=== PATIENT | male | born 1960 | race Caucasian/White ===

== ENCOUNTER 2020-08-07 06:16 | Emergency (ER) | payer MEDICARE ==
[2020-08-07 08:23] LABS: ABSOLUTE LYMPHOCYTES (AUTO) 0.9 10^3/uL (0.5-4.7); ABSOLUTE MONOCYTES (AUTO) 0.8 10^3/uL (0.1-1.4); ABSOLUTE NEUT (AUTO) 3.7 10^3/uL (1.7-8.2); BASOPHILS % (AUTO) 0.8 % (0-2); EOSINOPHILS % (AUTO) 0.9 % (0-6); HEMATOCRIT 39.5 % (37.9-51.0); HEMOGLOBIN 13.7 g/dL (13.5-17.0); LYMPHOCYTES % (AUTO) 16.7 % (13-45); MEAN CORPUSCULAR HEMOGLOBIN 29.6 pg (27.0-33.4); MEAN CORPUSCULAR HGB CONC 34.6 g/dL (32.0-36.0); MEAN CORPUSCULAR VOLUME 86 fl (80-97); MONOCYTES % (AUTO) 14.6 % (3-13); PLATELET COUNT 180 10^3/uL (150-450); RED BLOOD COUNT 4.62 10^6/uL (4.35-5.55); RED CELL DISTRIBUTION WIDTH 13.7 % (11.5-14.0); TOTAL CELLS COUNTED % (AUTO) 100 %; WHITE BLOOD COUNT 5.5 10^3/uL (4.0-10.5)
--- NOTE | 2020-08-07 08:25 | RADIOLOGY REPORT (SQ) ---
EXAM DESCRIPTION: CHEST SINGLE VIEW IMAGES COMPLETED DATE/TIME: 08/07/2020 7:35 am REASON FOR STUDY: fever COMPARISON: None. EXAM PARAMETERS: NUMBER OF VIEWS: One view. TECHNIQUE: Single frontal radiographic view of the chest acquired. RADIATION DOSE: NA LIMITATIONS: None. FINDINGS: LUNGS AND PLEURA: Minimal basilar opacities. MEDIASTINUM AND HILAR STRUCTURES: No masses. Contour normal. HEART AND VASCULAR STRUCTURES: Heart normal in size. Normal vasculature. BONES: No acute findings. HARDWARE: None in the chest. OTHER: No other significant finding. IMPRESSION: Minimal basilar opacities. TECHNICAL DOCUMENTATION: JOB ID: [id number] [email or web address]- All Rights Reserved Reading location - IP/workstation name: [email or web address]
[2020-08-07 08:41] LABS: ALKALINE PHOSPHATASE 57 U/L (38-126); ANION GAP 6 (5-19); ASPARTATE AMINO TRANSFERASE 41 U/L (17-59); BILIRUBIN,DIRECT 0.1 mg/dL (0.0-0.4); BILIRUBIN,TOTAL 0.4 mg/dL (0.2-1.3); BLOOD UREA NITROGEN 19 mg/dL (7-20); CARBON DIOXIDE 28 mmol/L (22-30); CHLORIDE 98 mmol/L (98-107); GLUCOSE 118 mg/dL (75-110); TOTAL PROTEIN 6.4 g/dL (6.3-8.2)
[2020-08-07 09:17] LABS: APPEARANCE,URINE SLIGHTLY-CLOUDY; BILIRUBIN,URINE NEGATIVE (NEGATIVE); COLOR,URINE YELLOW; GLUCOSE, URINE NEGATIVE (NEGATIVE); KETONES,URINE NEGATIVE (NEGATIVE); PROTEIN,URINE NEGATIVE (NEGATIVE); URINE SPECIFIC GRAVITY 1.021
[2020-08-07 09:44] LABS: A TYPE INFLUENZA AG NEGATIVE (NEGATIVE); B INFLUENZA AG NEGATIVE (NEGATIVE)
[2020-08-07] MEDS ORDERED: DEXAMETHASONE SOD PHOS INJ 10 MG/1 ML VIAL IV ONE (10:39)
--- NOTE | 2020-08-07 10:46 | ER Document Report ---
ED General - General Chief Complaint: Flu Symptoms Stated Complaint: FEVER,BODY ACHES,LOSS OF COORDINATION Time Seen by Provider: 08/07/20 07:42 Primary Care Provider: KEHINDE KAY MD [Primary Care Provider] - Follow up as needed - HPI Notes: Chief complaint: Flulike illness History of present illness: 60-year-old male history of hypertension, CAD with previous stent placement and osteoarthritis status post bilateral knee replacements presents now with 2 to 3-day history of mild flulike illness. He notes that he becomes dyspneic on exertion. He has minimal cough. No chest pain. He has had some alteration of his sense of taste. He denies fever or chills. He has had some mild impairment of memory and concentration. Suspect that he may have Covid although has not been tested for this and he has no definite known exposure to a Covid positive individual. Patient smokes three quarters of a pack of cigarettes per day. - Related Data Allergies/Adverse Reactions: Penicillins Allergy (Verified 08/07/20 06:23) Past Medical History - General Information source: Patient - Social History Smoking Status: Current Every Day Smoker Frequency of alcohol use: Social Drug Abuse: None Lives with: Spouse/Significant other Family History: Reviewed & Not Pertinent - Past Medical History Cardiac Medical History: Reports: Hx Coronary Artery Disease Pulmonary Medical History: Reports: None Endocrine Medical History: Denies: Hx Diabetes Mellitus Type 1, Hx Diabetes Mellitus Type 2 Malignancy Medical History: Reports None GI Medical History: Reports: None Musculoskeletal Medical History: Reports Hx Arthritis Past Surgical History: Reports: Hx Orthopedic Surgery Review of Systems - Review of Systems Notes: Constitutional: Negative for fever. HENT: Negative for sore throat. Eyes: Negative for visual changes. Cardiovascular: Negative for chest pain. Respiratory: As per HPI. Gastrointestinal: Negative for abdominal pain, vomiting or diarrhea. Genitourinary: Negative for dysuria. Musculoskeletal: As per HPI. Skin: Negative for rash. Neurological: As per HPI. 10 point ROS negative except as marked above and in HPI. Physical Exam - Vital signs Vitals: Temp Pulse Resp BP Pulse Ox 98.0 F 71 18 129/64 H 96 08/07/20 06:23 08/07/20 06:23 08/07/20 06:23 08/07/20 06:23 08/07/20 06:23 - Notes Notes: GENERAL: No patient of approximately stated age appearing in no acute distress. SKIN: Good turgor no rashes. HEAD: Normocephalic atraumatic. EYES: PERRLA. EOMI. Conjunctivae and sclerae clear. EARS: CANALS AND TMS CLEAR. NOSE: CLEAR. MOUTH: Moist mucosa. Good dentition. No stridor or edema. No drooling. NECK: Supple. No masses or thyromegaly. No adenopathy. Carotids 2+ without bruits. No JVD. BACK: Symmetrical without tenderness. CHEST: Few scattered rhonchi bilaterally which clear with cough. Respirations unlabored. Breath sounds clear and symmetrical. HEART: Regular rhythm. No murmur gallop or rub. ABDOMEN: Soft nontender without masses, organomegaly or rebound. Bowel sounds normally active. No bruits. GENITALIA: Deferred. EXTREMITIES: No edema. No calf tenderness. Cap refill less than 1.5 seconds. Dorsalis pedis and posterior tibial pulses 3+ and symmetrical. NEUROLOGICAL: GCS 15. Alert and oriented x3. Normal gait. Fluent speech. Cranial nerves II through XII intact. Sensorimotor and cerebellar normal. Normal tone. PSYCHIATRIC: Appropriate affect. Course - Re-evaluation Re-evalutation: 08/07/20 10:44 Patient is hemodynamically stable and is oxygenating normally on room air. Chest x-ray shows minimal bibasilar interstitial infiltrates suspicious for Covid pneumonia. We have submitted a nasal swab with 72-hour turnaround time. His influenza swab here is negative. I have reassured the patient and I am going to treat him empirically with dexamethasone and azithromycin. I think he stable for outpatient management with isolation at home until results of his testing are known. He understands to return here immediately for new or worsening symptoms. Findings, clinical impression and plan of treatment have been discussed with patient/family. Understanding of current findings and recommendations has been acknowledged by them and there is agreement regarding disposition and follow-up. - Vital Signs Vital signs: Temp Pulse Resp BP Pulse Ox 98.0 F 71 18 129/64 H 96 08/07/20 06:23 08/07/20 06:23 08/07/20 06:23 08/07/20 06:23 08/07/20 06:23 - Laboratory Result Diagrams: 08/07/20 07:39 08/07/20 07:39 Laboratory results interpreted by me: 11/28/20 11/28/20 11/28/20 07:39 07:39 08:52 [place] % (Auto) 14.6 H Sodium 132.4 L Glucose 118 H Urine Urobilinogen 2.0 H Urine Ascorbic Acid 40 H - Diagnostic Test Radiology reviewed: Image reviewed, Reports reviewed Radiology results interpreted by me: 08/07/20 10:44 Chest X-Ray 08/07/20 07:25 IMPRESSION: Minimal basilar opacities. Discharge - Discharge Clinical Impression: Interstitial pneumonitis, Suspected COVID-19 infection Condition: Stable Disposition: HOME, SELF-CARE Additional Instructions: Increase oral fluids. Return here as needed for new or worsening symptoms. Take prescribed medications as directed. It is recommended that she should stop smoking. Remain on isolation at home until you receive results of your pending Covid testing within the next 72 hours. You may also follow-up with your primary care physician. Prescriptions: Azithromycin 250 mg PO ASDIR PRN #6 tablet PRN Reason: Prednisone [Deltasone 20 mg Tablet] 2 tab PO DAILY 5 Days tablet Forms: Smoking Cessation Education Referrals: KEHINDE KAY MD [Primary Care Provider] - Follow up as needed
[2020-08-07] MEDS ORDERED: ACETAMINOPHEN 325 MG TABLET PO ONE (11:23)
[2020-08-07] MEDS ORDERED: DEXAMETHASONE SOD PHOS INJ 10 MG/1 ML VIAL IM ONE (11:25)
[2020-08-07 11:42] VITALS: BP 116/79
== END 2020-08-07 11:42 | disposition home or self-care (01) ==
LOC: ER 06:16
DX: U07.1 COVID-19 (principal); R50.9 Fever, unspecified; M79.10 Myalgia, unspecified site; F17.210 Nicotine dependence, cigarettes, uncomplicated; I10 Essential (primary) hypertension; I25.10 Atherosclerotic heart disease of native coronary artery without angina pectoris; Z88.0 Allergy status to penicillin; Z96.653 Presence of artificial knee joint, bilateral
CPT/HCPCS: 99284; 96372; 36415; 87040; 85025; 80053; 81001; 87804; 71045; U0003; A9270; J1100; C9803; 87635